=== PATIENT | male | born 1995 | race Caucasian/White ===

== ENCOUNTER 2016-05-11 11:11 | Emergency (ER) | payer OTHER ==
[2016-05-11 12:02] VITALS: BP 119/73
--- NOTE | 2016-05-11 13:54 | RAD ---
INDICATION: Abdominal injury COMPARISON: None TECHNIQUE: Noncontrast axial source images were obtained from the hemidiaphragms to the symphysis pubis. There is a reported contrast allergy. Oral contrast was not administered. Lung bases: The lung bases are clear. Liver: The liver is normal in size. Noncontrast imaging shows no evidence of a hepatic mass or ductal dilatation. Gallbladder: There is cholelithiasis. There are also gallstones in the cystic duct. There is no thickening gallbladder wall or pericholecystic fluid. Spleen: The spleen is mildly generous in size measuring 13 cm in diagonal dimension. The noncontrast CT appearance is normal. Pancreas: Noncontrast imaging shows no pancreatic mass or ductal dilitation. Adrenal glands: No masses are identified. Kidneys/Bladder: There is no evidence of nephrolithiasis or CT evidence of hydronephrosis. Noncontrast imaging shows no evidence of a renal mass. The bladder is unremarkable.. Adenopathy: There is no evidence of intraperitoneal or retroperitoneal adenopathy. Evaluation is limited without oral contrast. Fluid collections: There are no free or localized fluid collections. Vessels: The aorta and iliac vessels are normal in caliber. There are no significant atherosclerotic changes. The IVC appears normal Pelvic organs: The prostate and seminal vesicles appear normal GI tract: Evaluation of the bowel is limited without oral contrast. The stomach, small bowel, and lower GI tract appear grossly normal. There are no obstructive findings. Soft tissues: No soft tissue abnormalities of the extraperitoneal abdomen or pelvis are identified. Osseous structures: There are no acute osseous findings. IMPRESSION: 1. Noncontrast imaging shows no evidence of traumatic injury to the solid viscera. 2. Cholelithiasis. 3. Borderline enlarged spleen
--- NOTE | 2016-05-11 16:57 | UC ---
ITank,Ovi, scribed for Jennie Vuong MD on 05/11/16 at 1229 . Abdominal Pain Male HPI - HPI Summary HPI Summary: This 20 y/o male presents to [facility] for acute abd pain that woke pt up at 0430 AM. Abd pain is located diffusely and sharp pain, but it is currently mild. He reports recurrent hx of abd pain that is usually spontaneously resolved after eating, but states today's abd pain is worse when pt attempted to eat. Lying down makes the abd pain better. Ibuprofen 400 mg was taken around 0630 AM this morning. Pt is current [employer] student. R/B/A of CT scan is discussed with pt, and pt is agreeable. - History of Current Complaint Chief Complaint: UCAbdominalPain Stated Complaint: ABDOMINAL PAIN Time Seen by Provider: 05/11/16 12:10 Hx Obtained From: Patient, Family/Energy Management Specialist - mother Onset/Duration: Sudden Onset, Resolved Timing: Constant Severity Initially: Moderate Severity Currently: Mild Pain Intensity: 1 - currently Location: Diffuse Radiates: No Character: Aching, Sharp Aggravating Factor(s):: Food Alleviating Factor(s): Meds - ibuprofen 400 mg Associated Signs And Symptoms: Negative: Fever, Nausea, Vomiting, Diarrhea - Allergies/Home Medications Allergies/Adverse Reactions: Allergies Allergy/AdvReac Type Severity Reaction Status Date / Time Bee Venom Allergy Unknown Hives Verified 05/11/16 11:51 Clams Allergy Hives Uncoded 05/11/16 11:51 Seasonal Allergies Allergy Congestion Uncoded 05/11/16 11:51 PMH/Surg Hx/FS Hx/Imm Hx Respiratory History Of: Reports: Asthma - Illness induced asthma - Surgical History Surgical History: None - Family History Known Family History: Positive: Hypertension - mother - Social History Occupation: Student Alcohol Use: Occasionally Substance Use Type: None Smoking Status (MU): Never Smoked Tobacco - Immunization History Vaccination Up to Date: Yes Review of Systems Constitutional: Negative Skin: Negative Eyes: Negative ENT: Negative Respiratory: Negative Cardiovascular: Negative Gastrointestinal: Abdominal Pain Genitourinary: Negative Motor: Negative Neurovascular: Negative Musculoskeletal: Negative Neurological: Negative Psychological: Negative All Other Systems Reviewed And Are Negative: Yes Physical Exam Triage Information Reviewed: Yes Appearance: Well-Appearing, Well-Nourished, Pain Distress Vital Signs: Initial Vital Signs Temp 98.4 F 05/11/16 11:52 Pulse 64 05/11/16 11:52 Resp 18 05/11/16 11:52 BP 119/73 05/11/16 11:52 Pulse Ox 100 05/11/16 11:52 Vital Signs Reviewed: Yes Eyes: Positive: Conjunctiva Clear ENT: Positive: Normal ENT inspection Neck: Positive: Supple, Nontender, No Lymphadenopathy Respiratory: Positive: Lungs clear, Normal breath sounds, No respiratory distress, No accessory muscle use Cardiovascular: Positive: RRR, No Murmur, Pulses Normal, Brisk Capillary Refill Abdomen Description: Positive: Soft, Other: - Pain at periumbilical and upper abd region. Nontender over spleen. Negative: CVA Tenderness (R), CVA Tenderness (L), Distended, Guarding, McBurney's Point Tenderness, Peritoneal Signs Bowel Sounds: Positive: Present Musculoskeletal: Positive: Strength Intact, ROM Intact Neurological: Positive: Alert, Muscle Tone Normal Psychological Exam: Normal Skin: Positive: Other - 10 cm linear superficial abrasion over LUQ. Abrasion is secondary to injury sustained while playing hockey last pm. Pt states it is not painful, and that he gets abrasions like this all the time playing hockey. States it did not hurt when he sustained it. Diagnostics - Laboratory Diagnostic Studies Completed/Ordered: Urine assessment indicates positive blood. CT Ab/P without constrast -- 1. Noncontrast imaging shows no evidence of traumatic injury to the solid viscera. 2. Cholelithiasis. 3. Borderline enlarged spleen Re-Evaluation - Re-Evaluation First Eval Re-Evaluation Time: 12:38 Change: Unchanged Comment: Mother present at bedside. Plan of care involving CT scan is discussed with pt. R/b/a and questions are answered, and mother also is agreeable to CT scan. Pain med is offered but declined. Second Eval Re-Evaluation Time: 13:21 Change: Unchanged Comment: Plan of care involving CT imaging studies both with contrast and without contrast. Third Eval Re-Evaluation Time: 14:09 Change: Unchanged Comment: MD in room to share the results of CT Ab/P without contrast with pt and mother. Abd Pain Male Course/Dx - Differential Dx/Clinical Impression Differential Diagnosis/HQI/PQRI: Gall Bladder Disease, Peptic Ulcer Disease, Renal Colic, Ureteral Stone, Other - splenic injury Provider Diagnoses: 1) cholelithiasis 2) microscopic hematuria 3) Acute abdominal pain - Physician Notification/Consults Discussed Patient Care With: Dr. Dial (Radiologist) at 1256 PM -- Recommends with and without contrast. does not need creatinine. Allergy information reviewed. Dr. Faria (Radiologist) at 1400 PM -- Discussed the results of CT Ab /P without contrast. After going over hx anaphylaxis to beestings, CT with contrast is contraindicated. Discharge - Discharge Plan Condition: Stable Disposition: HOME Patient Education Materials: Gallstones (ED), Low Fat Diet (ED), Hematuria (ED) , Acute Abdominal Pain (ED) Referrals: Izaiah Astorga MD [Medical Doctor] - Additional Instructions: Dr. Vuong advises that if you have severe abdominal pain that you should go directly to the emergency room. The documentation as recorded by the ernstibTank llamas Soohyun accurately reflects the service I personally performed and the decisions made by Yevgeniy davenport Barbara J, MD.
== END 2016-05-11 14:46 | disposition home or self-care (01) ==
LOC: UCEAST 11:11
DX: K80.20 Calculus of gallbladder without cholecystitis without obstruction (principal); R31.29 Other microscopic hematuria; R10.84 Generalized abdominal pain
CPT/HCPCS: 74176; 81002; 99211; G0463

== ENCOUNTER 2016-05-20 22:59 | Emergency (ER) | payer OTHER ==
[2016-05-20 23:09] VITALS: BP 123/66
[2016-05-20] MEDS ORDERED: Ondansetron INJ* 2 MG/ML VIAL IV ONE (23:35)
[2016-05-20] MEDS ORDERED: Morphine INJ* 4 MG/ML 1 ML SYRINGE IV ONE (23:35)
[2016-05-20 23:48] LABS: Hematocrit 46 % (42-52); Hemoglobin 15.7 g/dl (14.0-18.0); Mean Corpuscular HGB Conc 34 g/dl (31-36); Mean Corpuscular Hemoglobin 32 pg (27-31); Mean Corpuscular Volume 92 fL (80-94); Mean Platelet Volume 8 um3 (7.4-10.4); Red Blood Count 4.97 10^6/ul (4.0-5.4); Red Cell Distribution Width 13 % (10.5-15); White Blood Count 7.4 10^3/ul (3.5-10.8)
[2016-05-21] MEDS ORDERED: NS 0.9% 1000 ML* 1,000 ML IV ONE (00:02)
[2016-05-21 00:05] LABS: Albumin 4.6 g/dL (3.2-5.2); BUN/Creatinine Ratio 19.8 (8-20); Calcium 9.9 mg/dL (8.6-10.3); EGFR African American 122.4 (>60); EGFR Non-African American 95.2 (>60); Globulin 3.2 g/dL (2-4); Potassium 3.7 mmol/L (3.5-5.0); Total Bilirubin 0.4 mg/dL (0.2-1.0); Total Protein 7.8 g/dL (6.4-8.9)
[2016-05-21] MEDS ORDERED: Ketorolac INJ* 30 MG/ML 1 ML VIAL IV PUSH ONE (00:20)
[2016-05-21] MEDS ORDERED: HYDROcodone/ACETAMIN 5-325 MG* 1 TAB PO ONE (01:21)
[2016-05-21] MEDS ORDERED: Ondansetron TAB* 4 MG PO ONE (01:22)
--- NOTE | 2016-05-21 08:01 | RAD ---
INDICATION: Abdominal pain. Cholelithiasis. COMPARISON: CT May 11, 2016 TECHNIQUE: Longitudinal and transverse scans of the right upper quadrant were obtained. Doppler interrogation of the hepatic and portal venous system was performed. FINDINGS: Liver: The liver is normal in size and echogenicity. There are no focal masses. The liver measures 15.2 cm in cephalocaudal dimension. Vessels: There is normal hepatic and portal venous flow. Bile ducts: There is no evidence of intrahepatic or extrahepatic ductal dilatation. The common duct measures 0.3 cm. Gallbladder: There is cholelithiasis. There is mild thickening of the gallbladder wall. There is no pericholecystic fluid. The patient was not tender over the gallbladder when scanning. Pancreas: The visualized pancreas appears normal Right kidney: The right kidney is normal in size and echogenicity. There are no masses or calculi. There is no evidence of hydronephrosis. The right kidney measures 10.1 x 4.2 x 5.6 cm. IVC and aorta: The aorta and superior vena cava appear normal. Fluid: There is no ascites. Other: None. IMPRESSION: CHOLELITHIASIS
--- NOTE | 2016-06-20 19:52 | ED ---
Igor Cline Janilya, scribed for Andrez Prado MD on 05/20/16 at 2330 . Abdominal Pain/Male - HPI Summary HPI Summary: A 20 y/o male came in to [facility] presenting w/ a gradual onset of constant abd pain starting a few hours ago. Severity rated 7/10. On Wednesday, May 11, 2016 pt was seen at [facility] for the same Sx. Pt denies fever, chills, diaphoresis, n/v/d, back pain, shoulder pain. Today, for dinner, pt had noodle soup with chicken. 4 hours ago, pt had normal bowel movement. On , May 14, 2016, pt had upper endoscopy w/ Dr. Astorga. No FHx of gallbladder disease. - History of Current Complaint Chief Complaint: EDAbdPain Stated Complaint: ABD PAIN Time Seen by Provider: 05/20/16 23:16 Hx Obtained From: Patient Onset/Duration: Sudden Onset, Lasting Days, Still Present Timing: Constant, Lasting Days Severity Initially: Moderate Severity Currently: Moderate Pain Intensity: 7 Pain Scale Used: 0-10 Numeric Radiates: No Character: Dull Aggravating Factor(s): Nothing Alleviating Factor(s): Nothing Associated Signs And Symptoms: Negative: Nausea, Vomiting, Diarrhea - Allergies/Home Medications Allergies/Adverse Reactions: Allergies Allergy/AdvReac Type Severity Reaction Status Date / Time Bee Venom Allergy Unknown Hives Verified 05/13/16 10:42 Clams Allergy Hives Uncoded 05/13/16 10:42 Seasonal Allergies Allergy Congestion Uncoded 05/13/16 10:42 PMH/Surg Hx/FS Hx/Imm Hx Previously Healthy: Yes Endocrine/Hematology History: Denies: Hx Diabetes, Hx Thyroid Disease Cardiovascular History: Denies: Hx Hypercholesterolemia, Hx Hypertension, Hx Pacemaker/ICD, Hx Peripheral Vascular Disease Respiratory History: Reports: Hx Asthma - Illness induced asthma Denies: Hx Chronic Obstructive Pulmonary Disease (COPD) GI History: Denies: Hx Ulcer Musculoskeletal History: Reports: Other Musculoskeletal History - QUESTIONABLE AREA ON XRAY,BOOT HELPING, 01/17/12 Denies: Hx Arthritis, Hx Osteoporosis Sensory History: Denies: Hx Cataracts, Hx Contacts or Glasses, Hx Glaucoma Opthamlomology History: Denies: Hx Cataracts, Hx Contacts or Glasses, Hx Glaucoma Neurological History: Denies: Hx Headaches, Hx Seizures, Hx Transient Ischemic Attacks (TIA) Psychiatric History: Denies: Hx Anxiety, Hx Depression, Hx Panic Disorder Infectious Disease History: No Infectious Disease History: Denies: Hx Hepatitis, Hx Human Immunodeficiency Virus (HIV), History Other Infectious Disease, Traveled Outside the [place] in Last 30 Days - Family History Known Family History: Positive: Hypertension - mother, Other - Pt denies gallbladder disease in FHx - Social History Occupation: Student Alcohol Use: Occasionally Substance Use Type: Reports: None Smoking Status (MU): Never Smoked Tobacco Review of Systems Negative: Fever, Chills Negative: Erythema Negative: Sore Throat Negative: Chest Pain Negative: Shortness Of Breath, Cough Positive: Abdominal Pain. Negative: Vomiting, Diarrhea, Nausea Negative: dysuria, hematuria Negative: Arthralgia - pt denies back pain, shoulder pain, Myalgia - pt denies back pain, shoulder pain, Edema Negative: Rash Neurological: Negative - (-) dizziness, (-) diaphoresis All Other Systems Reviewed And Are Negative: Yes Physical Exam - Summary Physical Exam Summary: Constitutional: Well-developed, Well-nourished, Alert. (-) Distressed Skin: Warm, Dry HENT: Normocephalic; Atraumatic Eyes: Conjunctiva normal Neck: Musculoskeletal ROM normal neck. (-) JVD, (-) Stridor, (-) Tracheal deviation Cardio: Rhythm regular, rate normal, Heart sounds normal; Intact distal pulses; The pedal pulses are 2+ and symmetric. Radial pulses are 2+ and symmetric. (-) Murmur Pulmonary/Chest wall: Effort normal. (-) Respiratory distress, (-) Wheezes, (-) Rales Abd: Soft, RUQ tenderness, (-) Distension, (-) Guarding, (-) Rebound Musculoskeletal: (-) Edema Lymph: (-) Cervical adenopathy Neuro: Alert, Oriented x3 Psych: Mood and affect Normal Triage Information Reviewed: Yes Vital Signs On Initial Exam: Initial Vitals Temp Pulse Resp BP Pulse Ox 98.9 F 70 18 123/66 100 05/20/16 23:06 05/20/16 23:06 05/20/16 23:06 05/20/16 23:06 05/20/16 23:06 Vital Signs Reviewed: Yes Diagnostics - Vital Signs Vital Signs Temp Pulse Resp BP Pulse Ox 05/20/16 23:06 98.9 F 70 18 123/66 100 - Laboratory Result Diagrams: 05/20/16 23:45 05/20/16 23:45 Lab Statement: Any lab studies that have been ordered have been reviewed, and results considered in the medical decision making process. - Ultrasound No standard instances Ultrasound Interpretation: Positive (See Comments) Ultrasound Interpretation Completed By: Radiologist - Abdomen US. IMPRESSION: Mild suspicion for cholecystitis, which may be further evaluated with HIDA scan as warranted. Re-Evaluation - Re-Evaluation First Eval Re-Evaluation Time: 00:50 Change: Improved Comment: Pt is currently in minimal pain. Normal WBC, normal LFT. Afebrile. Abdominal Pain Fem Course/Dx - Course Course Of Treatment: Reviewed past charts. PMHx of upper endoscopy w/ Dr. Astorga. - Diagnoses Differential Diagnosis/HQI/PQRI: Other - Gastroenteritis, cholelithiasis, biliary dysfunction, cholecystitis Provider Diagnoses: Biliary colic, Cholelithiasis - Provider Notifications Discussed Care Of Patient With: Dr. Granados (surgery) at 0115: does not believe that pt has cholecystitis; agrees to see outpatient f/u in his office. Discharge - Discharge Plan Condition: Stable Disposition: HOME Patient Education Materials: Biliary Colic (ED) Referrals: Jennie Vuong MD [Primary Care Provider] - Melchor Granados MD [Medical Doctor] - Additional Instructions: Follow up with your primary care provider and Dr. Granados (surgery) in 2 days. The documentation as recorded by the Igor staples Janilya accurately reflects the service I personally performed and the decisions made by me, Andrez Prado MD.
== END 2016-05-21 01:34 | disposition home or self-care (01) ==
LOC: ED 22:59
DX: K80.20 Calculus of gallbladder without cholecystitis without obstruction (principal); K80.50 Calculus of bile duct without cholangitis or cholecystitis without obstruction
CPT/HCPCS: 36415; 76705; 80053; 83690; 85025; 96374; 96375; 99282; A9270-GY; J1885; J2270; J2405

== ENCOUNTER → 2016-06-02 12:02 | Day surgery (SDC) | payer OTHER ==
--- NOTE | 2016-06-01 12:03 | HP ---
DATE OF ADMISSION: 06/02/2016. This patient is scheduled for Same Day Surgery admission tomorrow, June 02, [address] Garcia. DATE OF PREOPERATIVE HISTORY AND PHYSICAL EXAMINATION: Wednesday, June 01, 2016. ATTENDING SURGEON: Dr. Cyril Garcia (dictated by Kym Nogueira NP). CHIEF COMPLAINT: Epigastric pain. HISTORY OF PRESENT ILLNESS: The patient is a 20-year-old male recently evaluated by Dr. Garcia. The patient reports a two year history of intermittent epigastric pain upon awakening which resolved with eating. In late April, he awoke with epigastric pain after eating chicken, chocolate mousse cake, and ice cream. He went to the [facility] and had a CT of the abdomen and was found to have gallstones. He had a consultation at Gastroenterology and underwent upper endoscopy which was within normal limits with a negative CLOtest. On 05/20/2016, he had right upper quadrant pain and called Dr. Ballard and was sent to the emergency room and received Toradol with improvement. This episode was associated with diarrhea, nausea and vomiting. His electrolytes and LFT's in the emergency room on 05/20/2016 were all within normal limits. Amylase and lipase were normal. Gallbladder ultrasound revealed cholelithiasis with mild thickening of the gallbladder wall, but no pericholecystic fluid. The patient had a follow-up with Dr. Astorga on 05/27/2016, and Dr. Astorga agrees that that patient's bouts of epigastric pain are likely from the gallstones and encouraged the patient to move ahead with laparoscopic cholecystectomy. Dr. Garcia described the nature of the surgical procedure, the relevant risk, benefits and alternatives, and today I reviewed the typical same day surgery and expected postoperative care and recovery. The patient has had a chance to ask questions and stated that he understands the information and is satisfied with the answers given to his questions. He will sign surgical consent on the day of surgery. PAST MEDICAL HISTORY: Asthma in childhood. PAST SURGICAL HISTORY: He has not had any previous surgeries. MEDICATIONS: Pulmicort 90 mcg per actuation b.i.d. if he has an upper respiratory infection. ALLERGIES: No known drug allergies. FAMILY HISTORY: Father is status post coronary artery bypass grafting and is alive and well. Mother alive and well. One sister, age 17, alive and well. No known anesthesia complications, bleeding tendencies or clotting disorders. SOCIAL HISTORY: He lives with his parents. He is a student at [employer]. He has never been a smoker. He occasionally consumes alcohol and denies the use of other substances. REVIEW OF SYSTEMS: He states that he had a stomach virus approximately ten days ago which is resolved. He denies any cardiovascular symptoms. He denies any respiratory symptoms. He denies any other gastrointestinal symptoms other than described in the history of previous illness. He denies any genitourinary symptoms. He has tolerated IV sedation for the upper endoscopy and Novocain for dental procedures without complications. He denies any history of deep vein thrombosis or pulmonary embolism. He denies any bleeding tendencies and has never received a blood transfusion. He denies any musculoskeletal conditions. PHYSICAL EXAMINATION GENERAL: The patient is a 20-year-old male, well-developed, well-nourished, in no acute distress. VITAL SIGNS: Height 72 inches, weight 190 pounds, body mass index 25.8. Blood pressure 106/64, pulse 68 and regular, respiratory rate 16, temperature 96.5 tympanic. SKIN: Warm, dry, intact, anicteric. HEENT: Benign. Anicteric sclerae. NECK: Supple. No cervical lymphadenopathy. BACK: No CVA tenderness. LUNGS: Breath sounds bilaterally clear and equal. HEART: Regular rate and rhythm. No murmurs or rubs appreciated. ABDOMEN: Flat, active bowel sounds, soft, nontender throughout. Negative Cifuentes sign. No obvious masses, organomegaly, or evidence of ventral hernias. EXTREMITIES: Warm without edema or skin ulceration. GENITALIA: Exam deferred. RECTAL: Exam deferred. NEUROLOGIC: Alert and oriented times three, steady gait. IMPRESSION: Symptomatic cholelithiasis. PLAN: Same Day Surgery admission to Dr. Garcia service on Friday, June 022016 for laparoscopic cholecystectomy. IMAN NOGUEIRA NP CC: Dr. Sarabjit Brown* [id number]/[facility] #: [id number] MEY
[~2016-06-02 12:02] MED LIST: Buffered Lidocaine 1% SYR 3ML* 3 ML/SYR SYRINGE INTRADERM ONE; Bupivacaine 0.5% W/EPI SDV* 30 ML VIAL ONE; Dexamethasone IV* 4 MG/ML 1 ML (4 MG) IV SLOW PU ONE; Dexamethasone IV* 4 MG/ML 1 ML (4 MG) ONE; Famotidine IV* 10 MG/ML 2 ML (20 mg) IV ONE; Famotidine IV* 10 MG/ML 2 ML (20 mg) ONE; PROCHLORPERAZINE INJ 5 MG/ML 2 ML VIAL IV PRN; ceFAZolin 2 GM PREMIX (*) 2 GM/50 ML BAG IVPB ONE; fentaNYL* 50 MCG/ML 2 ML VIAL (100 MCG VIAL) IV PRN; oxyCODONE TAB* 5 MG TAB PO PRN
[2016-06-02 15:34] VITALS: BP 119/65
--- NOTE | 2016-06-04 00:50 | OP ---
DATE OF OPERATION: 06/02/16 [facility] DATE OF : [birth year] SURGEON: Cyril Garcia MD CAREER GUIDANCE TECHNICIAN: MARIIA Gonsalez ANESTHESIOLOGIST: Dr. Mindy Corona. ANESTHESIA: General endotracheal. PRE-OP DIAGNOSIS: Symptomatic gallstone. POST-OP DIAGNOSIS: Symptomatic gallstone. OPERATIVE PROCEDURE: Laparoscopic cholecystectomy. ESTIMATED BLOOD LOSS: Minimal. IV FLUIDS: Crystalloid. SPECIMEN: Gallbladder contents. DRAINS: None. COMPLICATIONS: None. COUNTS: The instrument, needle, and sponge counts were correct. DESCRIPTION OF PROCEDURE: The patient was brought to the operating room and placed on table supine. Sequential compression devices were placed on both lower extremities. General anesthesia was administered. The abdomen was prepped and draped in the usual sterile fashion. Time-out was performed. Local anesthetic was infiltrated into the skin and soft tissue prior to making each incision. Entry to the abdomen was through a transumbilical vertical incision used to accommodate a 5-mm optical trocar. After accessing the peritoneal cavity, carbon dioxide was insufflated to a pressure 15 mmHg. Under direct visualization, 5 mm trocars were placed in the subxiphoid position and 2 additional trocars in the right upper quadrant. The gallbladder was identified. There appeared to be chronic inflammatory changes. No acute inflammation was noted. The gallbladder was long and thin. The fundus was grasped and attached superiorly above the liver. The infundibulum was retracted laterally and inferiorly and the peritoneum investing the gallbladder was incised with cautery and sharp dissection. The peritoneum was incised in both medial and lateral aspects of the infundibulum and then the dissection was performed using combination of sharp and blunt dissection to identify the infundibulocystic duct junction. In addition, the cystic artery was bluntly dissected out. After critical view was obtained, the cystic duct and cystic artery were each doubly clipped and divided with a 5 mm clipper plier. The gallbladder was then retracted superiorly, grasping the cystic duct stump and the gallbladder was freed from its attachments on the liver using the hook cautery, staying in an avascular plane. This was notable for a rather long mesentery in the gallbladder. After freeing the gallbladder, it was retrieved through the umbilical port site using endoscopic retrieval bag. Inspection revealed hemostasis to be excellent and all clips were intact. The ports removed under direct visualization. Carbon dioxide was released. The umbilicus was closed with 0 Polysorb to approximate the fascia in a [id number] fashion. The skin incisions were closed with 4-0 Monocryl in a subcuticular fashion. Steri-Strips were applied. The patient tolerated the procedure well, was extubated and transferred to the recovery room in stable condition. CC: Sarabjit Brown MD; Izaiah Astorga MD* [id number]/[facility] #: [id number] MTDD
== END | disposition home or self-care (01) ==
LOC: OR 12:02
PROVIDERS: ATTEND Surgery
DX: K80.10 Calculus of gallbladder with chronic cholecystitis without obstruction (principal); J45.909 Unspecified asthma, uncomplicated
CPT/HCPCS: 88304; C1776; J0690; J1100

== ENCOUNTER 2018-10-11 15:37 | Emergency (ER) | payer OTHER ==
[2018-10-11 16:33] VITALS: BP 121/65
--- NOTE | 2018-10-11 16:35 | UC ---
Ear Complaint HPI - HPI Summary HPI Summary: 23 yo male presents with left ear fullness. He tells me that over the past week or so he has noticed a fullness sensation in his left ear with decreased hearing. Says it will pop sometimes and feel better. He tried putting in OTC earwax drops with no change. He denies fever, chills, sinus symptoms, sore throat, or cough. - History of Current Complaint Chief Complaint: UCEar Stated Complaint: EAR COMPLAINT Time Seen by Provider: 10/11/18 16:34 Hx Obtained From: Patient Severity Currently: None Pain Intensity: 0 - Allergies/Home Medications Allergies/Adverse Reactions: Allergies Allergy/AdvReac Type Severity Reaction Status Date / Time bee venom protein (honey bee) Allergy Severe Anaphylatic Verified 10/11/18 16:34 Shock Clams Allergy Hives Uncoded 10/11/18 16:34 Seasonal Allergies Allergy Congestion Uncoded 10/11/18 16:34 Home Medications: Home Medications Cholecalciferol (Vitamin D3) [Vitamin D3] 1 tab PO DAILY 10/11/18 [History Confirmed 10/11/18] Cyanocobalamin (Vitamin B-12) [Vitamin B-12] 1 tab PO DAILY 10/11/18 [History Confirmed 10/11/18] Sertraline HCl [Zoloft] 100 mg PO DAILY 10/11/18 [History Confirmed 10/11/18] PMH/Surg Hx/FS Hx/Imm Hx Respiratory History: Asthma Psychological History: Anxiety - Surgical History Surgical History: Yes Surgery Procedure, Year, and Place: , 2016 - Family History Known Family History: Positive: Hypertension - mother - Social History Occupation: Student Alcohol Use: Occasionally Substance Use Type: Marijuana Substance Use Comment - Amount & Last Used: occassionally - october 2015 Smoking Status (MU): Never Smoked Tobacco - Immunization History Vaccination Up to Date: Yes Review of Systems All Other Systems Reviewed And Are Negative: Yes Constitutional: Positive: Negative Skin: Positive: Negative Eyes: Positive: Negative ENT: Positive: Ear Ache Respiratory: Positive: Negative Cardiovascular: Positive: Negative Neurovascular: Positive: Negative Neurological: Positive: Negative Psychological: Positive: Negative Physical Exam - Summary Physical Exam Summary: GENERAL: NAD. WDWN. No pain distress. SKIN: No rashes, sores, lesions, or open wounds. HEENT: Head: AT/NC Eyes: EOM intact. Conjunctiva clear without inflammation or discharge. Ears: Hearing grossly normal. B/L TMs occluded by brown/yellow cerumen. S/p removal: TMs WNL and intact. Nose: Nasal mucosa pink and moist. NTTP maxillary and frontal sinus. Throat: Posterior oropharynx without exudates, erythema, or tonsillar enlargement. Uvula midline. NECK: Supple. Nontender. No lymphadenopathy. CHEST: CTAB. No r/r/w. No accessory muscle use. Breathing comfortably and in no distress. CV: RRR. Without m/r/g. Pulses intact. NEURO: Alert. PSYCH: Age appropriate behavior. Triage Information Reviewed: Yes Vital Signs: Initial Vital Signs Temp 99.0 F 10/11/18 16:29 Pulse 70 10/11/18 16:29 Resp 16 10/11/18 16:29 BP 121/65 10/11/18 16:29 Pulse Ox 100 10/11/18 16:29 Vital Signs Reviewed: Yes Ear Complaint Course/Dx - Course Course Of Treatment: Cerumen impaction with successful disimpaction via irrigation. Pt tolerated well and had complete resolution of symptoms. - Differential Dx/Diagnosis Provider Diagnosis: Cerumen impaction Discharge - Sign-Out/Discharge Documenting (check all that apply): Patient Departure All imaging exams completed and their final reports reviewed: No Studies - Discharge Plan Condition: Stable Disposition: HOME Patient Education Materials: Cerumen Impaction (ED) Referrals: No Primary Care Phys,NOPCP [Primary Care Provider] - Additional Instructions: If you develop a fever, shortness of breath, chest pain, new or worsening symptoms - please call your PCP or go to the ED immediately. - Billing Disposition and Condition Condition: STABLE Disposition: Home
== END 2018-10-11 17:35 | disposition home or self-care (01) ==
LOC: UCEAST 15:37
DX: H61.22 Impacted cerumen, left ear (principal); F41.9 Anxiety disorder, unspecified
CPT/HCPCS: 99213; G0463